=== PATIENT | female | born 1965 | race African-American/Black ===

== ENCOUNTER → 2016-09-27 | Outpatient (CLI) | payer BC ==
[~2016-09-27] MED LIST: ACID REDUCER75 M1 PO; ADVAIR 250-501 EACH IH; ALBUTEROL17 G1 IH; ALLERGY SHOTS; EFFEXOR75 M3 PO; NEXIUM20 MG PO; PROVENTIL INH0.5 ML NEB; TOBREX5 ML OP; VICODIN 5/500 T1 TAB PO
--- NOTE | ~2016-09-27 | ST ---
Unit #: [id number] #: [id number] Patient: BRIAN FUNEZ [id number] [address] [address] [id number] O MR#: [id number] NAME: BRIAN FUNEZ : 1965 SEX: F STUDY DATE/TIME: 09/27/2016 UNIT: [facility] ROOM: STUDY DESCRIPTION: Cardiac stress test. Attending Physician: Manolo Landeros M.D. Referring Physician: Manolo Landeros M.D. Primary Care Physician: Vitaly Cox M.D. CARDIOLOGY REPORT EXAM Cardiac stress test. PROCEDURE Baseline EKG normal sinus rhythm, nonspecific ST-T changes. Resting heart rate 68 per minute, blood pressure 137/94. This 50-year-old patient received 0.4 mg of Lexiscan intravenously. During the test no ischemic changes noted. No arrhythmias noted. Blood pressure was stable. IMPRESSION 1. Nondiagnostic EKG during Lexiscan. 2. No arrhythmias noted. 3. Stable blood pressure during the test. 4. Correlate with Cardiolite study. Dictated by... Luis Alfredo Valdes/armin TD: 09/27/2016 14:19 JOB #: [id number] CARDIOLOGY REPORT Page 1 of 1 X Josesito Nogueira MD CARDIOLOGY REPORT
--- NOTE | ~2016-09-27 | TH ---
Unit #: [id number] #: [id number] Patient: BRIAN FUNEZ [id number] [address] [address] [id number] O MR#: [id number] NAME: BRIAN FUNEZ : 1965 SEX: F STUDY DATE/TIME: 09/27/2016 UNIT: [facility] ROOM: STUDY DESCRIPTION: Cardiolite imaging. Attending Physician: Manolo Landeros M.D. Referring Physician: Manolo Landeros M.D. Primary Care Physician: Vitaly Cox M.D. CARDIOLOGY REPORT EXAM This 50-year-old patient received 0.4 mg of Lexiscan intravenously, followed by 33.4 mCi of technetium 99m Cardiolite and images were obtained according to the standard SPECT protocol. For rest images 10.29 mCi of Cardiolite were injected. Images were reviewed in both phases. FINDINGS Overall study quality is excellent. Left ventricular cavity size is normal in both images. There is no lung activity. Right ventricle is normal. Rotating raw data showed no significant artifact, soft tissue attenuation or GI uptake. Review of the SPECT images showed normal homogeneous radiotracer concentration throughout the myocardium in both stress and rest images. Gated images showed normal left ventricular wall thickening and wall motion with an estimated left ventricular ejection fraction of 71%. IMPRESSION 1. Myocardial perfusion imaging is normal. 2. No evidence of ischemic or infarct. 3. Normal left ventricular dimensions. 4. Normal systolic left ventricular function with an estimated left ventricular ejection fraction of 71%. Dictated by... Luis Alfredo Valdes/armin TD: 09/27/2016 14:23 JOB #: [id number] CARDIOLOGY REPORT Page 1 of 1 X Josesito Nogueira MD CARDIOLOGY REPORT
== END | disposition home or self-care (01) ==
LOC: CNUC 08:30
DX: R07.9 Chest pain, unspecified (principal)
CPT/HCPCS: 78452; 93017; 93306; A9500; J2785